=== PATIENT | male | born 1965 | race Caucasian/White ===

== ENCOUNTER → 2020-10-08 | Outpatient (CLI) | payer OTHER ==
[~2020-10-08] MED LIST: ALBU90OI61; Allegra-D 12 H1 EACH; Antivert25 MG PO; CHLO25B PO; CLON.1; CLON.1 PO; CLON.2 PO; CYCL10 PO; DIAZ10 PO; ERYT.5TO OP; GABA100; GABA300 PO; K-Dur20 MEQ PO; LISI20 PO; LITH300C PO; METH10; METH10 PO; MS Contin15 MG; Norco 5-325 Ta1 EACH PO; OXYC15ER PO; OXYC5; PRAV20; PRAV20 PO; PRAVASTATIN SOD10 MG PO; Prinivil10 MG PO; Roxicodone5 MG PO; SILD50TA PO; VERA120 PO; VERA120ERB; VERA120ERB PO; VIT1CAPS12; Zofran Odt4 MG SL
== END ==
LOC: LAB SHORT 17:24 → LAB EV 17:24
DX: M70.31 Other bursitis of elbow, right elbow (principal)
CPT/HCPCS: 87070; 87205

== ENCOUNTER → 2023-04-09 | Outpatient (CLI) | payer OTHER ==
[2023-04-09 19:23] LABS: BASOPHILS ABSOLUTE AUTO 0.04 K/mm3 (0.00-0.23); BASOPHILS PERCENT AUTO 1 % (0-2); EOSINOPHILS ABSOLUTE AUTO 0.31 K/mm3 (0.00-0.68); EOSINOPHILS PERCENT AUTO 5 % (0-6); Hematocrit 39.4 % (37.0-53.0); IMMATURE GRAN ABSOLUTE AUTO 0.01 K/mm3 (0.00-0.10); IMMATURE GRAN PERCENT AUTO 0 % (0-1); LYMPHOCYTES ABSOLUTE AUTO 1.82 K/mm3 (0.84-5.20); LYMPHOCYTES PERCENT AUTO 27 % (21-46); MONOCYTES ABSOLUTE AUTO 0.63 K/mm3 (0.16-1.47); MONOCYTES PERCENT AUTO 9 % (4-13); Mean Corpuscular HGB 31.3 pg (26.0-34.0); Mean Corpuscular HGB Conc 35.5 g/dL (31.5-36.5); Mean Corpuscular Volume 88 fL (80-100); Mean Platelet Volume 11.1 fL (9.1-12.4); NEUTROPHILS PERCENT AUTO 59 % (41-73); Platelet Count 275 K/mm3 (150-400); RDW Standard Deviation 38.9 fL (35.1-46.3); Red Blood Cell Count 4.47 M/mm3 (4.30-5.90); White Blood Cell Count 6.81 K/mm3 (4.00-11.30)
[2023-04-09 20:36] LABS: Albumin, Blood 3.7 g/dL (3.4-5.0); Albumin/Globulin Ratio 1.1 (0.8-1.8); Bilirubin, Total 0.3 mg/dL (0.1-1.0); Calcium, Blood 9.7 mg/dL (8.5-10.1); Creatinine, Blood 0.78 mg/dL (0.60-1.20); Globulin, Blood 3.4 g/dL (2.2-4.0); Potassium, Blood 4.3 mmol/L (3.5-5.5); Thyroid Stimulating Hormone 0.786 uIU/mL (0.360-4.800); Total Protein, Blood 7.1 g/dL (6.4-8.2)
[2023-04-15 07:11] LABS: FREE TESTOSTERONE(DIRECT) 3.2 pg/mL (7.2-24.0)
== END ==
LOC: LAB SHORT 18:18 → LAB 18:18
PROVIDERS: Internal Medicine
DX: N52.9 Male erectile dysfunction, unspecified (principal)
CPT/HCPCS: 80053; 84402; 84403; 84443; 85025

== ENCOUNTER → 2023-04-17 | Outpatient (CLI) | payer OTHER ==
[2023-04-21 21:11] LABS: FREE TESTOSTERONE(DIRECT) 3.6 pg/mL (7.2-24.0); TESTOSTERONE, SERUM 119 ng/dL (264-916)
== END | disposition home or self-care (01) ==
LOC: LAB 14:42 → LAB SHORT 14:42
PROVIDERS: Internal Medicine
DX: N52.9 Male erectile dysfunction, unspecified (principal)
CPT/HCPCS: 84402; 84403

== ENCOUNTER → 2023-06-04 | Outpatient (CLI) | payer OTHER ==
[2023-06-04 15:02] LABS: Prostate Specific Antigen 0.419 ng/mL (0.000-4.000)
== END | disposition home or self-care (01) ==
LOC: LAB 11:09 → LAB SHORT 11:09
PROVIDERS: Internal Medicine
DX: Z12.5 Encounter for screening for malignant neoplasm of prostate (principal); E29.1 Testicular hypofunction
CPT/HCPCS: 84402; G0103

== ENCOUNTER → 2023-08-12 | Outpatient (CLI) | payer OTHER ==
[2023-08-12 15:21] LABS: Hematocrit 51.3 % (37.0-53.0); Hemoglobin 16.7 g/dL (13.5-17.5); Mean Corpuscular HGB 30.8 pg (26.0-34.0); Mean Corpuscular HGB Conc 32.6 g/dL (31.5-36.5); Mean Corpuscular Volume 95 fL (80-100); Mean Platelet Volume 11.4 fL (9.1-12.4); Platelet Count 300 K/mm3 (150-400); RDW Coefficient Variation 14.8 % (11.7-14.2); RDW Standard Deviation 51.3 fL (35.1-46.3); Red Blood Cell Count 5.43 M/mm3 (4.30-5.90); White Blood Cell Count 7.84 K/mm3 (4.00-11.30)
[2023-08-12 15:25] LABS: CHOL/HDL RATIO 4.7; Cholesterol 161 mg/dL (50-200); HDL Cholesterol 34 mg/dL (>39); LDL/HDL RATIO 2.9; Low Density Lipoprotein Chol 97 mg/dL (0-110); Triglycerides 150 mg/dL (30-160); Very Low Density Lipoprot Chol 30 mg/dL (6-32)
[2023-08-13 14:08] LABS: A/G RATIO 1.5 (1.2-2.2); BILIRUBIN, TOTAL 0.3 mg/dL (0.0-1.2); CALCIUM, SERUM 9.6 mg/dL (8.7-10.2); CREATININE, SERUM 0.9 mg/dL (0.76-1.27); GLOBULIN, TOTAL 2.7 g/dL (1.5-4.5); POTASSIUM, SERUM 4.6 mmol/L (3.5-5.2); PROTEIN, TOTAL, SERUM 6.7 g/dL (6.0-8.5)
== END ==
LOC: LAB 13:45 → LAB SHORT 13:45
PROVIDERS: Internal Medicine
DX: E78.2 Mixed hyperlipidemia (principal)
CPT/HCPCS: 80053; 80061; 84403; 85027

== ENCOUNTER → 2024-10-13 | Outpatient (CLI) | payer OTHER ==
[2024-10-13 15:53] LABS: BASOPHILS ABSOLUTE AUTO 0.07 K/mm3 (0.00-0.23); BASOPHILS PERCENT AUTO 1 % (0-2); EOSINOPHILS ABSOLUTE AUTO 0.49 K/mm3 (0.00-0.68); EOSINOPHILS PERCENT AUTO 7 % (0-6); Hematocrit 48.4 % (37.0-53.0); Hemoglobin 16.1 g/dL (13.5-17.5); IMMATURE GRAN ABSOLUTE AUTO 0.04 K/mm3 (0.00-0.10); IMMATURE GRAN PERCENT AUTO 1 % (0-1); LYMPHOCYTES PERCENT AUTO 22 % (21-46); MONOCYTES ABSOLUTE AUTO 0.69 K/mm3 (0.16-1.47); MONOCYTES PERCENT AUTO 10 % (4-13); Mean Corpuscular HGB 32.9 pg (26.0-34.0); Mean Corpuscular HGB Conc 33.3 g/dL (31.5-36.5); Mean Corpuscular Volume 99 fL (80-100); Mean Platelet Volume 11.6 fL (9.1-12.4); NEUTROPHILS ABSOLUTE AUTO 4.01 K/mm3 (1.96-9.15); NEUTROPHILS PERCENT AUTO 59 % (41-73); Platelet Count 281 K/mm3 (150-400); RDW Coefficient Variation 13.1 % (11.7-14.2); RDW Standard Deviation 47.4 fL (35.1-46.3); Red Blood Cell Count 4.89 M/mm3 (4.30-5.90)
[2024-10-13 16:34] LABS: Albumin, Blood 3.9 g/dL (3.4-5.0); Albumin/Globulin Ratio 1.2 (0.8-1.8); Bilirubin, Total 0.5 mg/dL (0.1-1.0); Bun/Creatinine Ratio 14.4 (12.0-20.0); Calcium, Blood 10.1 mg/dL (8.5-10.1); Creatinine, Blood 0.83 mg/dL (0.60-1.20); Globulin, Blood 3.2 g/dL (2.2-4.0); Total Protein, Blood 7.1 g/dL (6.4-8.2)
[2024-10-13 16:37] LABS: CHOL/HDL RATIO 6.9; Cholesterol 222 mg/dL (50-200); HDL Cholesterol 32 mg/dL (>39); LDL/HDL RATIO 3.8; Low Density Lipoprotein Chol 123 mg/dL (0-110); Triglycerides 336 mg/dL (30-160); Very Low Density Lipoprot Chol 67 mg/dL (6-32)
== END ==
LOC: LAB SHORT 14:53 → LAB 14:53
PROVIDERS: Internal Medicine
DX: E78.2 Mixed hyperlipidemia (principal); I10 Essential (primary) hypertension
CPT/HCPCS: 80053; 80061; 84403; 85025; G0103

== ENCOUNTER 2025-03-05 07:22 | Emergency (ER) | payer OTHER ==
[~2025-03-05] VITALS: Ht 180.3 cm; Wt 76.2 kg
[~2025-03-05 07:22] MED LIST changes: -CLON.1; -METH10; -OXYC5; +OXYC5 PO; -VERA120ERB PO
[2025-03-05] MEDS ORDERED: CeFAZolin Sodium 2,000 MG in NS 100 ML IV ONE (08:10)
[2025-03-05] MEDS ORDERED: NS 1,000 ML IV SCH (08:10)
[2025-03-05] MEDS ORDERED: FentaNYL Citrate 50 MCG/ML 2 ML Injection IV ONE (08:10)
[2025-03-05 08:48] LABS: BASOPHILS ABSOLUTE AUTO 0.06 K/mm3 (0.00-0.23); BASOPHILS PERCENT AUTO 0 % (0-2); EOSINOPHILS ABSOLUTE AUTO 0.12 K/mm3 (0.00-0.68); EOSINOPHILS PERCENT AUTO 1 % (0-6); Hematocrit 42.6 % (37.0-53.0); Hemoglobin 15.2 g/dL (13.5-17.5); IMMATURE GRAN ABSOLUTE AUTO 0.08 K/mm3 (0.00-0.10); IMMATURE GRAN PERCENT AUTO 1 % (0-1); LYMPHOCYTES ABSOLUTE AUTO 1.32 K/mm3 (0.84-5.20); LYMPHOCYTES PERCENT AUTO 8 % (21-46); MONOCYTES ABSOLUTE AUTO 1.76 K/mm3 (0.16-1.47); MONOCYTES PERCENT AUTO 11 % (4-13); Mean Corpuscular HGB Conc 35.7 g/dL (31.5-36.5); Mean Corpuscular Volume 92 fL (80-100); NEUTROPHILS ABSOLUTE AUTO 12.65 K/mm3 (1.96-9.15); NEUTROPHILS PERCENT AUTO 79 % (41-73); NRBC ABSOLUTE 0.00 K/mm3 (0.00-0.02); NRBC Auto 0.0 /100 WBC (0.0-0.2); Platelet Count 253 K/mm3 (150-400); RDW Coefficient Variation 12.2 % (11.7-14.2); RDW Standard Deviation 41.1 fL (35.1-46.3)
[2025-03-05 09:08] LABS: Alanine Aminotransfer (ALT/SGP 35.0 U/L (12-78); Albumin, Blood 3.6 g/dL (3.4-5.0); Albumin/Globulin Ratio 0.9 (0.8-1.8); Anion Gap 10.0 mmol/L (3-11); Aspartate Aminotrans (AST/SGOT 24.0 U/L (12-37); Bilirubin, Total 1.1 mg/dL (0.1-1.0); Blood Urea Nitrogen 18.0 mg/dL (8-24); CO2, Blood 24.0 mmol/L (21-32); Calcium, Blood 9.2 mg/dL (8.5-10.1); Chloride, Blood 102.0 mmol/L (98-108); Creatinine, Blood 0.72 mg/dL (0.60-1.20); Globulin, Blood 3.9 g/dL (2.2-4.0); Glucose, Blood 128.0 mg/dL (70-99); Potassium, Blood 3.9 mmol/L (3.5-5.5); Sodium, Blood 132.0 mmol/L (136-145); Total Protein, Blood 7.5 g/dL (6.4-8.2)
[2025-03-05] MEDS ORDERED: CEPH500 PO (09:40)
[2025-03-05] MEDS ORDERED: SULTRIDS PO (09:40)
[2025-03-05 10:00] VITALS: BP 120/81
== END 2025-03-05 10:12 | disposition home or self-care (01) ==
LOC: ER 07:22
PROVIDERS: Student in an Organized Health Care Education/Training Program
DX: L03.031 Cellulitis of right toe (principal); I10 Essential (primary) hypertension; E78.5 Hyperlipidemia, unspecified; F17.200 Nicotine dependence, unspecified, uncomplicated; Z88.8 Allergy status to other drugs, medicaments and biological substances; Z79.899 Other long term (current) drug therapy
CPT/HCPCS: 80053; 83605; 85025; 96365; 96375; 99283-25; J0690; J3010; J7030

== ENCOUNTER 2025-03-07 06:47 | Inpatient (IN) | payer OTHER ==
[~2025-03-07] VITALS: Ht 182.9 cm; Wt 90.9 kg
[~2025-03-07 06:47] MED LIST changes: +CEPH500 PO; +SULTRIDS PO
[2025-03-07] MEDS ORDERED: CefTRIAXone Sodium 1,000 MG in NS 50 ML IV ONE (07:45)
[2025-03-07] MEDS ORDERED: Morphine Sulfate 4 MG/1 ML Injection IV ONE (07:45)
[2025-03-07] MEDS ORDERED: Clindamycin 900mg in D5W 50ML 50 ML IV ONE (07:45)
[2025-03-07 08:19] LABS: BASOPHILS ABSOLUTE AUTO 0.05 K/mm3 (0.00-0.23); BASOPHILS PERCENT AUTO 1 % (0-2); EOSINOPHILS ABSOLUTE AUTO 0.37 K/mm3 (0.00-0.68); EOSINOPHILS PERCENT AUTO 4 % (0-6); Hematocrit 39.1 % (37.0-53.0); Hemoglobin 13.8 g/dL (13.5-17.5); IMMATURE GRAN ABSOLUTE AUTO 0.06 K/mm3 (0.00-0.10); IMMATURE GRAN PERCENT AUTO 1 % (0-1); LYMPHOCYTES ABSOLUTE AUTO 1.20 K/mm3 (0.84-5.20); LYMPHOCYTES PERCENT AUTO 13 % (21-46); MONOCYTES ABSOLUTE AUTO 1.10 K/mm3 (0.16-1.47); MONOCYTES PERCENT AUTO 12 % (4-13); Mean Corpuscular HGB Conc 35.3 g/dL (31.5-36.5); Mean Corpuscular Volume 93 fL (80-100); NEUTROPHILS ABSOLUTE AUTO 6.71 K/mm3 (1.96-9.15); NEUTROPHILS PERCENT AUTO 71 % (41-73); NRBC ABSOLUTE 0.00 K/mm3 (0.00-0.02); NRBC Auto 0.0 /100 WBC (0.0-0.2); Platelet Count 239 K/mm3 (150-400); RDW Coefficient Variation 12.2 % (11.7-14.2); RDW Standard Deviation 42.3 fL (35.1-46.3)
[2025-03-07 08:41] LABS: C-REACTIVE PROTEIN, EXT RANGE 13.6 mg/dL (0.000-0.300); Magnesium, Blood 2.6 mg/dL (1.6-2.4)
[2025-03-07 08:42] LABS: Alanine Aminotransfer (ALT/SGP 33.0 U/L (12-78); Albumin, Blood 3.2 g/dL (3.4-5.0); Albumin/Globulin Ratio 0.8 (0.8-1.8); Anion Gap 7.0 mmol/L (3-11); Aspartate Aminotrans (AST/SGOT 34.0 U/L (12-37); Bilirubin, Total 0.7 mg/dL (0.1-1.0); Blood Urea Nitrogen 12.0 mg/dL (8-24); CO2, Blood 25.0 mmol/L (21-32); Calcium, Blood 8.8 mg/dL (8.5-10.1); Chloride, Blood 103.0 mmol/L (98-108); Creatinine, Blood 0.82 mg/dL (0.60-1.20); Globulin, Blood 3.9 g/dL (2.2-4.0); Glucose, Blood 131.0 mg/dL (70-99); Potassium, Blood 3.9 mmol/L (3.5-5.5); Sodium, Blood 131.0 mmol/L (136-145); Total Protein, Blood 7.1 g/dL (6.4-8.2)
[2025-03-07] MEDS ORDERED: PREG200 PO (13:40)
[2025-03-07 13:56] VITALS: BP 142/86
[2025-03-07] MEDS ORDERED: NS 250 ML IV PRN (15:45)
[2025-03-07] MEDS ORDERED: Clindamycin 900mg in D5W 50ML 50 ML IV SCH (16:00)
[2025-03-07] MEDS ORDERED: CeFAZolin Sodium 2,000 MG in NS 100 ML IV SCH (16:00)
--- NOTE | 2025-03-07 16:08 | NUR ---
SHIFT SUMMARY PT AOX4, COOPERATIVE, ABLE TO MAKE NEEDS KNONW. PT IS IND IN ROOM, ON ROOM AIR. TOLERATING MEDICATION. PLEASANT AND COOPERATIVE, ON HEART HEALTHY DIET. PICS TAKEN OF INFECTION IN CHART. BED IN LOWEST POSITION, CALL LIGHT WITHIN REACH.
[2025-03-07 19:44] VITALS: BP 108/70
[2025-03-07] MEDS ORDERED: Lactobacil 2-S.Thermo-Bifido 1 1 Cap PO SCH (21:00)
--- NOTE | 2025-03-08 04:21 | NUR ---
SHIFT SUMMARY 60 YR M ADMITTED ON 03/07/25. FULL CODE. NO ACUTE CHANGES THIS SHIFT. A&OX4 AND INDEPENDANT IN THE ROOM. MEDICATED FOR PAIN PER EMAR. PT STATES HIS RIGHT TOE (FOOT) IS STARTING TO FEEL BETTER ALREADY. HE IS PLEASANT AND COOPERATIVE WITH CARE. WILL REPORT TO DAY NURSE. BED IN LOW POSITION AND CALL LIGHT IN REACH.
[2025-03-08 04:25] VITALS: BP 111/77
[2025-03-08 05:32] LABS: BASOPHILS ABSOLUTE AUTO 0.04 K/mm3 (0.00-0.23); BASOPHILS PERCENT AUTO 1 % (0-2); EOSINOPHILS ABSOLUTE AUTO 0.52 K/mm3 (0.00-0.68); EOSINOPHILS PERCENT AUTO 7 % (0-6); Hematocrit 35.2 % (37.0-53.0); Hemoglobin 12.3 g/dL (13.5-17.5); IMMATURE GRAN ABSOLUTE AUTO 0.05 K/mm3 (0.00-0.10); IMMATURE GRAN PERCENT AUTO 1 % (0-1); LYMPHOCYTES ABSOLUTE AUTO 1.33 K/mm3 (0.84-5.20); LYMPHOCYTES PERCENT AUTO 17 % (21-46); MONOCYTES ABSOLUTE AUTO 0.86 K/mm3 (0.16-1.47); MONOCYTES PERCENT AUTO 11 % (4-13); Mean Corpuscular HGB Conc 34.9 g/dL (31.5-36.5); Mean Corpuscular Volume 95 fL (80-100); NEUTROPHILS ABSOLUTE AUTO 5.12 K/mm3 (1.96-9.15); NEUTROPHILS PERCENT AUTO 65 % (41-73); NRBC ABSOLUTE 0.00 K/mm3 (0.00-0.02); NRBC Auto 0.0 /100 WBC (0.0-0.2); Platelet Count 241 K/mm3 (150-400); RDW Coefficient Variation 12.3 % (11.7-14.2); RDW Standard Deviation 42.8 fL (35.1-46.3)
[2025-03-08 05:57] LABS: Alanine Aminotransfer (ALT/SGP 33.0 U/L (12-78); Albumin, Blood 2.8 g/dL (3.4-5.0); Albumin/Globulin Ratio 0.8 (0.8-1.8); Anion Gap 9.0 mmol/L (3-11); Aspartate Aminotrans (AST/SGOT 27.0 U/L (12-37); Bilirubin, Total 0.3 mg/dL (0.1-1.0); Blood Urea Nitrogen 13.0 mg/dL (8-24); CO2, Blood 25.0 mmol/L (21-32); Calcium, Blood 8.5 mg/dL (8.5-10.1); Chloride, Blood 102.0 mmol/L (98-108); Creatinine, Blood 0.89 mg/dL (0.60-1.20); Globulin, Blood 3.6 g/dL (2.2-4.0); Glucose, Blood 96.0 mg/dL (70-99); Potassium, Blood 3.9 mmol/L (3.5-5.5); Sodium, Blood 132.0 mmol/L (136-145); Total Protein, Blood 6.4 g/dL (6.4-8.2)
[2025-03-08 07:32] VITALS: BP 124/70
[2025-03-08] MEDS ORDERED: Enoxaparin 40 MG/0.4 ML SYR SC SCH (09:00)
[2025-03-08 11:11] VITALS: BP 110/75
[2025-03-08 15:14] VITALS: BP 125/85
--- NOTE | 2025-03-08 16:34 | NUR ---
SUMMARY NO ACUTE CHANGES THIS SHIFT. DR. COFFEY CONSULTED. CHRONIC PAIN AND RLE PAIN TREATED PER EMAR. ALERT AND ORIENTED X3, INDEPENDENT. IV ANTIBIOTICS CONTINUED
[2025-03-08 19:15] VITALS: BP 124/77
[2025-03-09 04:22] VITALS: BP 107/65
[2025-03-09 05:12] LABS: BASOPHILS ABSOLUTE AUTO 0.05 K/mm3 (0.00-0.23); BASOPHILS PERCENT AUTO 1 % (0-2); EOSINOPHILS ABSOLUTE AUTO 0.57 K/mm3 (0.00-0.68); EOSINOPHILS PERCENT AUTO 9 % (0-6); Hematocrit 38.0 % (37.0-53.0); Hemoglobin 13.3 g/dL (13.5-17.5); IMMATURE GRAN ABSOLUTE AUTO 0.05 K/mm3 (0.00-0.10); IMMATURE GRAN PERCENT AUTO 1 % (0-1); LYMPHOCYTES ABSOLUTE AUTO 1.41 K/mm3 (0.84-5.20); LYMPHOCYTES PERCENT AUTO 21 % (21-46); MONOCYTES ABSOLUTE AUTO 0.89 K/mm3 (0.16-1.47); MONOCYTES PERCENT AUTO 13 % (4-13); Mean Corpuscular HGB Conc 35.0 g/dL (31.5-36.5); Mean Corpuscular Volume 94 fL (80-100); NEUTROPHILS ABSOLUTE AUTO 3.76 K/mm3 (1.96-9.15); NEUTROPHILS PERCENT AUTO 56 % (41-73); NRBC ABSOLUTE 0.00 K/mm3 (0.00-0.02); NRBC Auto 0.0 /100 WBC (0.0-0.2); Platelet Count 263 K/mm3 (150-400); RDW Coefficient Variation 12.3 % (11.7-14.2); RDW Standard Deviation 42.6 fL (35.1-46.3)
[2025-03-09 05:41] LABS: Alanine Aminotransfer (ALT/SGP 32.0 U/L (12-78); Albumin, Blood 2.9 g/dL (3.4-5.0); Albumin/Globulin Ratio 0.8 (0.8-1.8); Anion Gap 6.0 mmol/L (3-11); Aspartate Aminotrans (AST/SGOT 28.0 U/L (12-37); Bilirubin, Total 0.3 mg/dL (0.1-1.0); Blood Urea Nitrogen 11.0 mg/dL (8-24); CO2, Blood 27.0 mmol/L (21-32); Calcium, Blood 8.9 mg/dL (8.5-10.1); Chloride, Blood 103.0 mmol/L (98-108); Creatinine, Blood 0.88 mg/dL (0.60-1.20); Globulin, Blood 3.8 g/dL (2.2-4.0); Glucose, Blood 129.0 mg/dL (70-99); Potassium, Blood 4.3 mmol/L (3.5-5.5); Sodium, Blood 132.0 mmol/L (136-145); Total Protein, Blood 6.7 g/dL (6.4-8.2)
[2025-03-09 07:43] VITALS: BP 110/68
[2025-03-09] MEDS ORDERED: Morphine Sulfate 4 MG/1 ML Injection IV PRN (14:50)
--- NOTE | 2025-03-09 16:57 | NUR ---
NO ACUTE CHANGES THIS SHIFT. MRI OF RLE OBTAINED, DR. COFFEY FOLLOWING. INDEPENDENT IN THE ROOM. PT PAIN HAS REMAINED [phone] LOW BACK AND RLE. DR. WILDER NOTIFIED. PLEASE SEE UPDATED ORDERS. PT MEDICATED PER EMAR. NO OTHER CONCERNS THIS SHIFT. IV ANTIBIOTICS CONTINUED. CALLS APPROPRIATELY
[2025-03-09 17:28] VITALS: BP 121/80
[2025-03-09 19:15] VITALS: BP 114/82
[2025-03-10] VITALS (11 sets, daily range): BP systolic 109–147; BP diastolic 72–108
[2025-03-10 04:47] LABS: BASOPHILS ABSOLUTE AUTO 0.06 K/mm3 (0.00-0.23); BASOPHILS PERCENT AUTO 1 % (0-2); EOSINOPHILS ABSOLUTE AUTO 0.52 K/mm3 (0.00-0.68); EOSINOPHILS PERCENT AUTO 7 % (0-6); Hematocrit 40.1 % (37.0-53.0); Hemoglobin 14.1 g/dL (13.5-17.5); IMMATURE GRAN ABSOLUTE AUTO 0.11 K/mm3 (0.00-0.10); IMMATURE GRAN PERCENT AUTO 1 % (0-1); LYMPHOCYTES ABSOLUTE AUTO 1.72 K/mm3 (0.84-5.20); LYMPHOCYTES PERCENT AUTO 22 % (21-46); MONOCYTES ABSOLUTE AUTO 0.82 K/mm3 (0.16-1.47); MONOCYTES PERCENT AUTO 11 % (4-13); Mean Corpuscular HGB Conc 35.2 g/dL (31.5-36.5); Mean Corpuscular Volume 94 fL (80-100); NEUTROPHILS ABSOLUTE AUTO 4.45 K/mm3 (1.96-9.15); NEUTROPHILS PERCENT AUTO 58 % (41-73); NRBC ABSOLUTE 0.00 K/mm3 (0.00-0.02); NRBC Auto 0.0 /100 WBC (0.0-0.2); Platelet Count 301 K/mm3 (150-400); RDW Coefficient Variation 12.3 % (11.7-14.2); RDW Standard Deviation 42.5 fL (35.1-46.3)
[2025-03-10 05:04] LABS: Alanine Aminotransfer (ALT/SGP 27.0 U/L (12-78); Albumin, Blood 3.0 g/dL (3.4-5.0); Albumin/Globulin Ratio 0.8 (0.8-1.8); Anion Gap 8.0 mmol/L (3-11); Aspartate Aminotrans (AST/SGOT 24.0 U/L (12-37); Bilirubin, Total 0.5 mg/dL (0.1-1.0); Blood Urea Nitrogen 10.0 mg/dL (8-24); CO2, Blood 26.0 mmol/L (21-32); Calcium, Blood 9.1 mg/dL (8.5-10.1); Chloride, Blood 103.0 mmol/L (98-108); Creatinine, Blood 0.81 mg/dL (0.60-1.20); Globulin, Blood 4.0 g/dL (2.2-4.0); Glucose, Blood 108.0 mg/dL (70-99); Potassium, Blood 4.6 mmol/L (3.5-5.5); Sodium, Blood 132.0 mmol/L (136-145); Total Protein, Blood 7.0 g/dL (6.4-8.2)
--- NOTE | 2025-03-10 06:33 | NUR ---
RESUMED CARE OF PT AT 0400. VS TAKEN, MET PT AND OBSERVED CELLULITIS OF RLE W LARGE SCAB ON THIRD TOE. PT ONLY WANTING TO GO BACK TO SLEEP. NO IV ABX TILL AM. PT CAN FEEL TOES AND MOVE DIGITS.
[2025-03-10] MEDS ORDERED: Bupivacaine 0.5% HCl 5 MG/ML 30MLVIAL ONE (13:19)
[2025-03-10] MEDS ORDERED: Lidocaine HCl 2% 10 ML SDA ONE (13:19)
--- NOTE | 2025-03-10 13:31 | NUR ---
Patient picked up by day surgery. Patient transported via wheel chair no signs or symptoms of distress.
[2025-03-10] MEDS ORDERED: FentaNYL Citrate 50 MCG/ML 2 ML Injection ONE (14:10)
[2025-03-10] MEDS ORDERED: Ondansetron HCl 2 MG / ML 2ML Vial ONE (14:36)
[2025-03-10] MEDS ORDERED: Dexamethasone Sod Phos 10 MG/ML 1ML VIAL ONE (14:36)
[2025-03-10] MEDS ORDERED: Ketorolac Tromethamine 30mg Vial ONE (14:37)
--- NOTE | 2025-03-10 14:55 | NUR ---
03/10/25 1455 Elizabeth Robertson NO PREOP ANTIBIOTICS ORDERED PER PATIENT IS ON SCHEDULED ANTIBIOTICS.
[2025-03-10] MEDS ORDERED: HYDROmorphone HCl/Pf 1MG SYR IV PRN ×2 (15:00)
[2025-03-10] MEDS ORDERED: Albuterol 2.5 MG/3 ML VIAL INH PRN (15:00)
[2025-03-10] MEDS ORDERED: FentaNYL Citrate 50 MCG/ML 2 ML Injection IV PRN ×2 (15:00)
[2025-03-10] MEDS ORDERED: Ondansetron HCl 2 MG / ML 2ML Vial IV PRN (15:00)
--- NOTE | 2025-03-10 17:40 | NUR ---
SHIFT SUMMARY PATIENT ALERT AND INTERACTIVE THROUGHOUT THE DAY. PATIENT USES CALL LIGHT APPROPRIATELY. NEW IV PLACED IN R FOREARM FLUSHES WELL. VS STABLE. PATIENT HAD 3RD TOE AMPUTATED THIS AFTERNOON. POST OP VITALS STABLE. PAIN MANAGED PER EMAR. PATIENT AMBULATES INDEPENDENTLY IN ROOM, CURRENTLY WATCHING TV AND RESTING WITH RIGHT FOOT ELEVATED. CALL LIGHT WITHIN REACH.
--- NOTE | 2025-03-11 04:07 | NUR ---
SHIFT SUMMARY NO ACUTE EVENTS DURING THIS SHIFT. VSS, RIGHT FOOT DRESSING C/D/I. MEDICATED PER EMAR FOR ACUTE PAIN IN RIGHT FOOT, AND FOR CHRONIC BACK PAIN PER EMAR. IV ABX'S INFUSED ORDERED. POST OPERATIVE DAY 0. PT HAD A SNACK AT HS, VOIDING WELL. INDEPENDENT W/I THE HOSPITAL ROOM. BED AT THE LOWEST POSITION, CALL LIGHT W/I REACH. PT IS A/O X4, PLEASANT AND COOPERATIVE WITH CARE. PT IS ABLE TO MAKE HIS NEEDS KNOWN.
[2025-03-11 04:12] VITALS: BP 118/76
[2025-03-11 04:50] LABS: BASOPHILS ABSOLUTE AUTO 0.06 K/mm3 (0.00-0.23); BASOPHILS PERCENT AUTO 1 % (0-2); EOSINOPHILS ABSOLUTE AUTO 0.38 K/mm3 (0.00-0.68); EOSINOPHILS PERCENT AUTO 5 % (0-6); Hematocrit 41.1 % (37.0-53.0); Hemoglobin 14.4 g/dL (13.5-17.5); IMMATURE GRAN ABSOLUTE AUTO 0.11 K/mm3 (0.00-0.10); IMMATURE GRAN PERCENT AUTO 1 % (0-1); LYMPHOCYTES ABSOLUTE AUTO 1.59 K/mm3 (0.84-5.20); LYMPHOCYTES PERCENT AUTO 20 % (21-46); MONOCYTES ABSOLUTE AUTO 0.86 K/mm3 (0.16-1.47); MONOCYTES PERCENT AUTO 11 % (4-13); Mean Corpuscular HGB Conc 35.0 g/dL (31.5-36.5); Mean Corpuscular Volume 94 fL (80-100); NEUTROPHILS ABSOLUTE AUTO 4.82 K/mm3 (1.96-9.15); NEUTROPHILS PERCENT AUTO 62 % (41-73); NRBC ABSOLUTE 0.00 K/mm3 (0.00-0.02); NRBC Auto 0.0 /100 WBC (0.0-0.2); Platelet Count 322 K/mm3 (150-400); RDW Coefficient Variation 12.4 % (11.7-14.2); RDW Standard Deviation 43.0 fL (35.1-46.3)
[2025-03-11 05:14] LABS: Alanine Aminotransfer (ALT/SGP 31.0 U/L (12-78); Albumin, Blood 3.2 g/dL (3.4-5.0); Albumin/Globulin Ratio 0.8 (0.8-1.8); Anion Gap 7.0 mmol/L (3-11); Aspartate Aminotrans (AST/SGOT 29.0 U/L (12-37); Bilirubin, Total 0.3 mg/dL (0.1-1.0); Blood Urea Nitrogen 13.0 mg/dL (8-24); CO2, Blood 28.0 mmol/L (21-32); Calcium, Blood 9.2 mg/dL (8.5-10.1); Chloride, Blood 102.0 mmol/L (98-108); Creatinine, Blood 0.86 mg/dL (0.60-1.20); Globulin, Blood 3.8 g/dL (2.2-4.0); Glucose, Blood 124.0 mg/dL (70-99); Potassium, Blood 4.3 mmol/L (3.5-5.5); Sodium, Blood 133.0 mmol/L (136-145); Total Protein, Blood 7.0 g/dL (6.4-8.2)
[2025-03-11 07:32] VITALS: BP 102/75
[2025-03-11 15:15] VITALS: BP 139/80
--- NOTE | 2025-03-11 15:23 | NUR ---
SHIFT SUMMARY PATIENT A&OX4, PLEASANT THROUGHOUT THE SHIFT, AND COOPERATIVE WITH CARE PROVIDED. PATIENT HAS BEEN EDUCATED BY THE RN'S AND DOCTORS TO KEEP PRESSURE OFF OF THE FRONT HIS RIGHT FOOR. PATIENT HAD A BROWN COW DRINK THAT HAS WORKED AND HAS HAD SEVERAL BM. CURRENT PLANS IS FOR PHYSICAL THERAPY TO EVALUATE HIM FOR NEED OF EQUIPMENT SO THAT HE CAN DISCHARGE TOMORROW. PATIENT IS ABLE TO MAKE NEEDS KNOWN AND CALLS APPROPRIATELY. CALL LIGHT WITHIN REACH.
--- NOTE | 2025-03-11 16:38 | NUR ---
ASSUMED CARE OF PATIENT
[2025-03-11 19:42] VITALS: BP 147/91
--- NOTE | 2025-03-12 03:40 | NUR ---
SHIFT SUMMARY NO ACUTE EVENTS DURING THIS SHIFT. PT LOOKING FOWARD TO D/C TODAY AND WILL HAVE A RIDE SET UP FROM HIS SON. MEDICATED PER EMAR FOR CHRONIC PAIN. RIGHT FOOT DRESSING IS C/D/I. BED AT THE LOWEST POSITION, CALL LIGHT W/I REACH. IV ABX'S ADMINISTERED ORDERED.
[2025-03-12 04:13] VITALS: BP 107/80
[2025-03-12 07:13] VITALS: BP 120/61
[2025-03-12] MEDS ORDERED: VISBIOME 112.51 EACH PO (15:39)
[2025-03-12] MEDS ORDERED: CEPH500 PO (15:39)
[2025-03-12] MEDS ORDERED: Cleocin HCl150 MG PO (15:40)
[2025-03-12 16:08] VITALS: BP 148/82
--- NOTE | 2025-03-12 16:52 | NUR ---
DISCHARGE NOTE- PT WAS GIVEN VERBAL AND WRITTEN DISCHARGE INSTRUCTIONS AND ACKNOWLEDGED UNDERSTANDING OF THEM. PT REQUESTED 6 EXTRA DOSES OF HIS PAIN MEDICATION TO GET THROUGH THE POST OP PERIOD. HARD COPY SCRIPT PROVIDED BY THE DOCTOR. PT DISCHARGED HOME, ESCORTED OUT VIA WC BY THE TURNING MACHINE SET UP OPERATOR, NO S&S OF DISTRESS NOTED AT THE TIME OF DISCHARGE.
== END 2025-03-12 16:38 | disposition home or self-care (01) | DRG 504 ==
LOC: ER 06:47 → MEDS 06:48 → ER 06:48 → MEDS 13:30 → ER 03-08 16:07 → MEDS 03-08 16:08
PROVIDERS: Podiatrist Foot & Ankle Surgery; Student in an Organized Health Care Education/Training Program; ADMIT Hospitalist
PROC: 3E03329 Introduction of Other Anti-infective into Peripheral Vein, Percutaneous Approach (ICD-10-PCS; 2025-03-07)
PROC: 0Y6T0Z1 Detachment at Right 3rd Toe, High, Open Approach (ICD-10-PCS; principal; 2025-03-10 14:00)
DX: M86.171 Other acute osteomyelitis, right ankle and foot (principal); E87.1 Hypo-osmolality and hyponatremia; L03.115 Cellulitis of right lower limb; E86.1 Hypovolemia; I10 Essential (primary) hypertension; M54.16 Radiculopathy, lumbar region; H81.09 Meniere's disease, unspecified ear; J45.20 Mild intermittent asthma, uncomplicated; G89.4 Chronic pain syndrome; F31.9 Bipolar disorder, unspecified; F17.200 Nicotine dependence, unspecified, uncomplicated; Z88.8 Allergy status to other drugs, medicaments and biological substances; Z79.891 Long term (current) use of opiate analgesic
CPT/HCPCS: 36415; 73630; 73700; 73718; 80053; 83735; 85025; 85651; 86140; 87071; 87075; 87077; 87147; 87186; 87205; 93971; 96365; 96375; 97110; 97161; 99285-25; A9270; G0378; J0690; J0696; J1100; J1171; J1650; J1885; J2003; J2270; J2405; J2704; J3010; J7050